=== PATIENT | female | born 1935 | race Caucasian/White ===

== ENCOUNTER 2018-05-29 13:08 | Emergency (ER) | payer MEDICARE ==
[~2018-05-29] VITALS: Ht 154.9 cm; Wt 58.1 kg
--- NOTE | 2018-05-29 13:19 | NUR ---
Placed in room 08 . Placed on site monitor, blood pressure machine and pulse oximeter. To gown for exam. Side rails up.
[2018-05-29 13:20] VITALS: BP_SYST 124
--- NOTE | 2018-05-29 13:30 | NUR ---
Patient presented to the ER via BLS, patient had syncope episode x3 at home. Patient A&O x3, afebrile, respirations equal, no distress noted at this time. EKG and Glucose done upon arrival. Patient asking for Daughter and .
--- NOTE | 2018-05-29 13:31 | NUR ---
ER at bedside examining patient.
--- NOTE | 2018-05-29 13:45 | NUR ---
Patients len Mathew at bedside.
[2018-05-29 14:29] LABS: RED BLOOD CELL COUNT(AUTO) 2.99 MIL/uL (4.2-6.2); WHITE BLOOD COUNT (AUTO) 7.7 K/uL (4.8-10.8)
[2018-05-29 14:30] LABS: BASOPHILS % (AUTO) 0.8 % (0.0-2.0); EOSINOPHILS % (AUTO) 2.2 % (0.0-4.0); HEMATOCRIT 30.8 % (36-48); LYMPHOCYTES % (AUTO) 19.8 % (20.5-51.5); MEAN CORPUSCULAR HEMOGLOBIN 34 pg (27-31); MEAN CORPUSCULAR HGB CONC 33 % (32-36); MEAN CORPUSCULAR VOLUME 103 fL (79.0-98.0); NEUTROPHILS # (AUTO) 5.6 K/uL (1.8-7.7); NEUTROPHILS % (AUTO) 73.2 % (40.0-70.0); PLATELET COUNT (AUTO) 266 K/uL (130-430); RED CELL DISTRIBUTION WIDTH 15.7 % (9.0-15.0)
[2018-05-29 14:31] LABS: BASOPHILS # (AUTO) 0.1 K/uL (0.0-0.2); EOSINOPHILS # (AUTO) 0.2 K/uL (0.0-0.4); LYMPHOCYTES # (AUTO) 1.5 K/uL (1.0-5.5); MONOCYTES # (AUTO) 0.3 K/uL (0.0-1.0)
[2018-05-29 14:34] LABS: INR 1.8 (0.8-1.2); PROTHROMBIN TIME 18.2 SECS (9.5-12.5)
--- NOTE | 2018-05-29 14:40 | NUR ---
Pt to CT via [facility] & radiology staff
[2018-05-29 14:42] LABS: CHLORIDE 96 mmol/L (98-107); POTASSIUM 4.3 mmol/L (3.5-5.1); SODIUM SERUM 135 mmol/L (136-145)
[2018-05-29 14:43] LABS: ANION GAP 3 (5-15); CALCIUM 10.8 mg/dL (8.4-11.0); CREATININE 2.51 mg/dL (0.55-1.30); GLUCOSE 143 mg/dL (70-99); UREA NITROGEN, BLOOD 69 mg/dL (8-21)
[2018-05-29 14:47] LABS: ALANINE AMINOTRANSFERASE 17 U/L (12-78); ALBUMIN 3.2 g/dL (3.4-4.8); ASPARTATE AMINOTRANSFERASE 42 U/L (10-37); TOTAL BILIRUBIN 0.5 mg/dL (0.0-1.0)
--- NOTE | 2018-05-29 14:50 | NUR ---
Pt back to ER bed [address], pt on cardiac monoitor
[2018-05-29 15:05] LABS: BILIRUBIN,URINE NEGATIVE (NEGATIVE); BLOOD, URINE NEGATIVE (NEGATIVE); CLARITY/URINE HAZY (CLEAR); COLOR,URINE YELLOW (YELLOW); GLUCOSE,URINE NEGATIVE (NEGATIVE); KETONES,URINE NEGATIVE (NEGATIVE); LEUKOCYTE ESTERASE ,URINE NEGATIVE (NEGATIVE); NITRITE, URINE NEGATIVE (NEGATIVE); PH,URINE 8.5 (5.0-8.0); PROTEIN URINE 2+ (NEGATIVE); UROBILINOGEN,URINE 0.2 (0.2-1.0)
[2018-05-29 15:19] LABS: BARBITURATE, URINE NEGATIVE (NEG <=200); BENZODIAZEPINE, URINE NEGATIVE (NEG <=150); CANNABINOID, URINE NEGATIVE (NEG <=50); COCAINE, URINE NEGATIVE (NEG <=150); METHAMPHETAMINES SCREEN,URINE NEGATIVE (NEG <=500); OPIATE, URINE NEGATIVE (NEG <=100); PHENCYCLIDINE SCREEN,URINE NEGATIVE (NEG <=25); UR TRICYCLIC ANTIDEPRESSANTS NEGATIVE (NEG <=300); URINE AMPHETAMINE NEGATIVE (NEG <=500); URINE METHADONE NEGATIVE (NEG <=200); URINE OXYCODONE SCREEN NEGATIVE (NEG <=100); URINE PROPOXYPHENE SCREEN NEGATIVE (NEG <=300)
[2018-05-29 15:22] LABS: BACTERIA,URINE FEW /HPF (None Seen); MUCUS,URINE None Seen /LPF (None Seen); RBC,URINE 0-3 /HPF (0-3); URINE AMORPHOUS PHOSPHATES 1+ /HPF (None Seen); WBC,URINE 0-3 /HPF (0-3)
[2018-05-29] MEDS ORDERED: FURO10VI27 PO (15:26)
[2018-05-29] MEDS ORDERED: WARF2.5T2 PO (15:26)
[2018-05-29] MEDS ORDERED: SILD20TA PO (15:26)
[2018-05-29] MEDS ORDERED: SIMV5TAB59 PO (15:26)
[2018-05-29] MEDS ORDERED: PRO20 PO (15:26)
[2018-05-29] MEDS ORDERED: DIGO125T79 PO (15:26)
[2018-05-29] MEDS ORDERED: NINT100C PO (15:26)
--- NOTE | 2018-05-29 15:26 | NUR ---
Medication reconciliation completed with information provided by patient . Any prior medication reconciliation on file was reviewed and corrected.
[2018-05-29] MEDS ORDERED: cefTRIAXone 1 GM in D5W 50 ML IV ONE (15:30)
[2018-05-29] MEDS ORDERED: cefTRIAXone 1 GM VIAL ONE (15:45)
--- NOTE | 2018-05-29 15:59 | NUR ---
Pt resting at this time, family at bedside.
--- NOTE | 2018-05-29 16:48 | NUR ---
Pt resting in [facility], no distress noted at this time. Consent for Pt. transfer signed by Priyanka Sweet, daughter of Pt.
--- NOTE | 2018-05-29 17:53 | NUR ---
Pt sleeping, vs wnl, no distress noted, daughter at bedside asked to speak with MD at his convenience. Notified Dr. Wilkinson.
--- NOTE | 2018-05-29 18:45 | NUR ---
Jakub allan in [facility] - 05/29/18 at 1859 by SDEDTD Report given to Ryan GOMEZ, Charge Nurse Dinesh Sterling
--- NOTE | 2018-05-29 18:45 | NUR ---
Report given to Ryan GOMEZ, Charge Nurse Dinesh Sterling. ETA 10 min per [facility] at bedside for tranport.
[2018-05-29 18:55] VITALS: BP_SYST 113
== END 2018-05-29 18:45 | disposition short-term general hospital (02) ==
LOC: EDBD 13:08 → SED 13:08
DX: R55 Syncope and collapse (principal); N28.9 Disorder of kidney and ureter, unspecified; E11.9 Type 2 diabetes mellitus without complications; I10 Essential (primary) hypertension; J44.9 Chronic obstructive pulmonary disease, unspecified; Z86.79 Personal history of other diseases of the circulatory system; Z88.6 Allergy status to analgesic agent; Z79.899 Other long term (current) drug therapy
CPT/HCPCS: 36415; 70450; 71045; 80053; 80307; 81000; 82962; 83605; 84484; 85025; 85610; 85730; 87040; 93005; 96365; 99285; J0696; J7060